=== PATIENT | female | born 1995 | race Caucasian/White ===

== ENCOUNTER 2017-06-03 19:45 | Emergency (ER) | payer SELFPAY ==
[2017-06-03 19:59] VITALS: BP 109/56; PULSE 69; TEMP 98.2; BMI 23.3
--- NOTE | 2017-06-03 20:33 | PDOC ---
History of Present Illness - General Chief Complaint: Eye Problem Stated Complaint: PINK EYE Time Seen by Provider: 06/03/17 20:06 History Source: Patient - History of Present Illness Timing/Duration: other (yesterday) Past History - Past Medical History Allergies/Adverse Reactions: Allergies Allergy/AdvReac Type Severity Reaction Status Date / Time No Allergy Information Allergy Verified 06/03/17 19:56 Available Home Medications: Ambulatory Orders Erythromycin 0.5% Eye Ointment [Erythromycin 0.5% Eye Ointment -] 1 applic OS ASDIR #1 tube 06/03/17 - Psycho/Social/Smoking Cessation Hx Suicidal Ideation: No Smoking History: Never smoked Review of Systems - Review of Systems Constitutional: No: Fever HEENTM: Yes: Eye Pain. No: Blurred Vision, Tearing, Ear Pain, Throat Pain Respiratory: No: Cough *Physical Exam - Vital Signs Last Vital Signs Temp Pulse Resp BP Pulse Ox 98.2 F 69 18 109/56 99 06/03/17 19:56 06/03/17 19:56 06/03/17 19:56 06/03/17 19:56 06/03/17 19:56 - Physical Exam General Appearance: Yes: Appropriately Dressed. No: Apparent Distress HEENT: positive: Normal Voice, Other (minmal conjunctival erythema to L eye, no discharge or tearing, no lid lesions). negative: Scleral Icterus (R), Scleral Icterus (L) Neck: positive: Supple Respiratory/Chest: negative: Respiratory Distress Integumentary: positive: Dry, Warm Neurologic: positive: Fully Oriented, Alert, Normal Mood/Affect Medical Decision Making - Medical Decision Making 06/03/17 20:31 21 yo F, no sig hx, does not wear contact lens, here ? L eye redness, pain and discharge that started yesterday morning. No blurry vision, photophobia, tearing or visual changes. Using visine and vaseline w/ minimal relief. No sick contacts See exam Conjunctivitis -dc w/ abx ointment -contact precautions given *DC/Admit/Observation/Transfer Diagnosis at time of Disposition: Conjunctivitis Qualifiers: Conjunctivitis type: acute Acute conjunctivitis type: viral Laterality: left Qualified Code(s): B30.9 - Viral conjunctivitis, unspecified - Discharge Dispostion Disposition: HOME Condition at time of disposition: Good - Prescriptions Prescriptions: Erythromycin 0.5% Eye Ointment [Erythromycin 0.5% Eye Ointment -] 1 applic OS ASDIR #1 tube - Patient Instructions Printed Discharge Instructions: Conjunctivitis Additional Instructions: Apply ointment as directed and use warm rag to remove discharge/crusting - Post Discharge Activity Work/School Note: Back to Work
== END 2017-06-03 20:32 | disposition home or self-care (01) ==
LOC: JERFT 19:45
DX: B30.9 Viral conjunctivitis, unspecified (principal)
CPT/HCPCS: 99281-25

== ENCOUNTER 2022-04-13 17:25 | Emergency (ER) | payer OTHER ==
[2022-04-13 17:41] VITALS: BP 130/88; PULSE 67; TEMP 98; BMI 23.0
[2022-04-13 18:38] LABS: EPI CELLS 28 /uL (0-25.1); HYALINE CASTS 8 /uL (0-3.1); URINE APPEARANCE CLOUDY; URINE BACTERIA 743 /uL (0-1359); URINE BILIRUBIN NEGATIVE (NEGATIVE); URINE COLOR YELLOW; URINE GLUCOSE (UA) NEGATIVE (NEGATIVE); URINE KETONE NEGATIVE (NEGATIVE); URINE LEUK ESTERASE 2+ (NEGATIVE); URINE NITRITE NEGATIVE (NEGATIVE); URINE PROTEIN 1+ (NEGATIVE); URINE RBC 18 /uL (0-23.9); URINE WBC 511 /uL (0-25.8)
== END 2022-04-13 18:51 | disposition home or self-care (01) ==
LOC: JERFT 17:25 → JER 17:25 → JERFT 18:51
DX: N30.00 Acute cystitis without hematuria (principal)
CPT/HCPCS: 81003; 84703; 87086; 87186; 99283-25

== ENCOUNTER 2025-06-25 11:33 | Emergency (ER) | payer SELFPAY ==
[2025-06-25 11:40] VITALS: RESP 18; TEMP 98.3; BMI 21.2
[2025-06-25 12:49] LABS: ABSOLUTE IMMATURE GRANULOCYTES 0.03 x10^3/uL (0.0-0.031); BASOPHILS # 0.04 x10^3/uL (0.01-0.08); EOSINOPHIL % 0.6 % (0.7-5.8); EOSINOPHILS # 0.05 x10^3/uL (0.04-0.36); MCHC 33.2 g/dl (32.2-35.5); MEAN CELL VOLUME 90.8 fl (79.4-94.8); MEAN PLT VOLUME 9.9 fl (9.4-12.3); MONOCYTE # 0.54 x10^3/uL (0.24-0.86); MONOCYTE % 6.9 % (4.7-12.5); RDW 12.4 % (12.1-16.5)
[2025-06-25 13:15] LABS: HCG,QUALITATIVE URINE Positive
[2025-06-25 13:18] LABS: EPI CELLS >36 /uL (0-25.1); HYALINE CASTS 0 /uL (0-3.1); URINE APPEARANCE CLEAR; URINE BACTERIA 529 /uL (0-1359); URINE BILIRUBIN NEGATIVE (NEGATIVE); URINE COLOR YELLOW; URINE GLUCOSE (UA) NEGATIVE (NEGATIVE); URINE KETONE 1+ (NEGATIVE); URINE LEUK ESTERASE TRACE (NEGATIVE); URINE NITRITE NEGATIVE (NEGATIVE); URINE PROTEIN NEGATIVE (NEGATIVE); URINE RBC 27 /uL (0-23.9); URINE UROBILINOGEN 1.0 mg/dL (0.2-1.0); URINE WBC 13 /uL (0-25.8)
[2025-06-25 13:22] LABS: GLUCOSE,RANDOM 81.0 mg/dL (74-106)
[2025-06-25 13:23] LABS: TOT PROT 7.5 g/dl (6.4-8.2)
[2025-06-25 13:24] LABS: CO2 22.0 mmol/L (21-32)
[2025-06-25 13:25] LABS: ALK PHOS 67.0 U/L (40-150)
[2025-06-25 13:28] LABS: CREATININE 0.47 mg/dL (0.55-1.3); SGOT/AST 23.0 U/L (5-34); SGPT/ALT 22.0 U/L (0-55)
[2025-06-25 15:14] LABS: HCV DIAGNOSTIC IN-HOUSE W/RFLX NON-REACTIVE (NONREACTIVE); HIV INTERPRETATION NEGATIVE (NEGATIVE)
[2025-06-25 15:47] VITALS: BP 111/72; PULSE 88
== END 2025-06-25 15:46 | disposition home or self-care (01) ==
LOC: JER 11:33
DX: O21.9 Vomiting of pregnancy, unspecified (principal); O99.891 Other specified diseases and conditions complicating pregnancy; R19.7 Diarrhea, unspecified; R68.83 Chills (without fever); O26.891 Other specified pregnancy related conditions, first trimester; R10.11 Right upper quadrant pain; Z3A.00 Weeks of gestation of pregnancy not specified
CPT/HCPCS: 36415; 76705-TC; 76817-TC; 80053; 81003; 83690; 84702; 84703; 85025; 86803; 87086; 87389; 99284-25